=== PATIENT | male | born 1985 | race Caucasian/White ===

== ENCOUNTER 2018-12-22 09:53 | Emergency (ER) | payer SELFPAY ==
[~2018-12-22] VITALS: Ht 172.7 cm; Wt 70.3 kg
[2018-12-22] MEDS ORDERED: ONDANSETRON HCL INJ 2MG/ML 2ML 2 MG/ML VIAL IV NR (10:05)
[2018-12-22] MEDS ORDERED: MORPHINE SULFATE INJ 4 MG/ML INJ 1ML IV PRN (10:15)
[2018-12-22 10:22] LABS: BASOPHILS # (AUTO) 0.1 (0.0-0.1); BASOPHILS % 1.2 % (0.0-1.0); EOSINOPHILS # (AUTO) 0.5 (0.0-0.4); EOSINOPHILS % 5.8 % (0.0-6.0); HEMATOCRIT 45.4 % (38.2-49.6); HEMOGLOBIN 15.6 g/dL (14.0-18.0); LYMPHOCYTES # (AUTO) 1.8 (1.0-3.2); LYMPHOCYTES % 23.3 % (18.0-39.1); MEAN CORPUSCULAR HEMOGLOBIN 30.4 pg (28-32); MEAN CORPUSCULAR HGB CONC 34.4 g/dL (31-35); MEAN CORPUSCULAR VOLUME 88.3 fL (81-99); MONOCYTES # (AUTO) 0.6 (0.2-0.8); MONOCYTES % 7.6 % (4.4-11.3); NEUTROPHILS # (AUTO) 4.7 (2.1-6.9); NEUTROPHILS % 61.2 % (38.7-80.0); PLATELET COUNT 159 x10e3/uL (140-360); RED BLOOD COUNT 5.14 x10e6/uL (4.3-5.7); RED CELL DISTRIBUTION WIDTH 12.4 % (11.7-14.4)
[2018-12-22 10:27] LABS: CLARITY,URINE SL CLOUDY (CLEAR); COLOR,URINE YELLOW (YELLOW)
[2018-12-22 10:32] LABS: BILIRUBIN,URINE NEGATIVE (NEGATIVE); KETONES,URINE NEGATIVE (NEGATIVE); LEUKOCYTE ESTERASE ,URINE NEGATIVE (NEGATIVE); NITRITE,URINE NEGATIVE (NEGATIVE); PROTEIN,URINE DIPSTICK NEGATIVE (NEGATIVE); URINE UROBILINOGEN 0.2 mg/dL (0.2 - 1)
[2018-12-22 10:36] LABS: ALANINE AMINOTRANSFERASE 46 IU/L (0-55); ALBUMIN 4.1 g/dL (3.5-5.0); ALBUMIN/GLOBULIN RATIO 1.3 (0.8-2.0); ALKALINE PHOSPHATASE 66 IU/L (40-150); ANION GAP 12.6 mmol/L (8-16); BLOOD UREA NITROGEN 14 mg/dL (7-26); BUN/CREATININE RATIO 17 (6-25); CALCIUM 9.6 mg/dL (8.4-10.2); CARBON DIOXIDE 23 mmol/L (22-29); CHLORIDE 107 mmol/L (98-107); CREATININE, SERUM 0.84 mg/dL (0.72-1.25); EST GLOMERULAR FILTRATION RATE > 60 ML/MIN (60-); GLUCOSE 100 mg/dL (74-118); POTASSIUM 3.6 mmol/L (3.5-5.1); SODIUM 139 mmol/L (136-145)
[2018-12-22 10:46] LABS: RBC,URINE 0-5 /HPF (0-5)
[2018-12-22 10:47] LABS: EPITHELIAL CELLS,URINE RARE /LPF
--- NOTE | 2018-12-22 11:28 | Diagnostic Imaging Report ---
EXAMINATION: CHEST SINGLE (PORTABLE) INDICATION: ^logroll precautions ^[id number] ^[id number] COMPARISON: None FINDINGS: AP view TUBES and LINES: None. LUNGS: Lungs are well inflated. Lungs are clear. There is no evidence of pneumonia or pulmonary edema. PLEURA: No pleural effusion or pneumothorax. HEART AND MEDIASTINUM: The cardiomediastinal silhouette is unremarkable.. BONES AND SOFT TISSUES: No acute osseous lesion. Soft tissues are unremarkable. UPPER ABDOMEN: No free air under the diaphragm. IMPRESSION: No acute thoracic abnormality. Signed by: Dr. Clarita Sands M.D. on 12/22/2018 11:24 AM
--- NOTE | 2018-12-22 11:33 | Diagnostic Imaging Report ---
PELVIS X-RAY - 2 VIEWS HISTORY: ^logroll precautions ^[id number] ^104 COMPARISON: None available. FINDINGS: Bones: No acute displaced fracture. Osseous alignment is within normal limits. Joints: The joint spaces are well-maintained. Soft tissues: The soft tissues appear unremarkable. IMPRESSION: No acute radiographic abnormality. Signed by: Dr. Clarita Sands M.D. on 12/22/2018 11:30 AM
--- NOTE | 2018-12-22 11:35 | Diagnostic Imaging Report ---
CT BRAIN WO HISTORY: Trauma COMPARISON: None. TECHNIQUE: Noncontrast axial scans were obtained from skull base to the vertex. Coronal and sagittal reconstructions obtained from the axial data. One or more of the following dose reduction techniques were used: Automated exposure control, adjustment of the mA and/or kV according to patient size, and/or utilization of iterative reconstruction technique. DISCUSSION: Scalp/Skull: Unremarkable. Brain sulci: Appropriate for patient's age. Ventricles: Normal in size and configuration. No hydrocephalus. Extra-axial spaces: No masses or fluid collections. Parenchyma: Small focal hypodensity along the right putamen, at the level of the anterior commissure, is likely a prominent perivascular space. Otherwise, no mass, hemorrhage, or large vascular territory acute infarct. Dural sinuses: No abnormal densities. Sellar/Suprasellar region: Intact. Skull base: Intact. Incidental findings: Mild scattered paranasal sinus mucosal thickening. IMPRESSION: No intracranial abnormalities. Signed by: Dr. Edmond James M.D. on 12/22/2018 11:32 AM
--- NOTE | 2018-12-22 11:38 | Diagnostic Imaging Report ---
CT CERVICAL SPINE WO HISTORY: Trauma COMPARISON: Concurrent head CT TECHNIQUE: CT of the cervical spine without contrast. Sagittal and coronal reformations were created. One or more of the following dose reduction techniques were used: Automated exposure control, adjustment of the mA and/or kV according to patient size, and/or utilization of iterative reconstruction technique. FINDINGS: Cervical lordosis is slightly straightened. There is no scoliosis or subluxation. No fractures, compression deformity, or destructive osseous lesions are seen. The craniocervical junction is intact. No gross spinal canal masses are seen. The paravertebral and paraspinal soft tissues are unremarkable. The disc spaces are preserved. IMPRESSION: No acute osseous abnormalities. Signed by: Dr. Edmnod James M.D. on 12/22/2018 11:35 AM
--- NOTE | 2018-12-22 11:46 | Diagnostic Imaging Report ---
CT LUMBAR SPINE WO HISTORY: Trauma COMPARISON: Pelvis radiographs from earlier today TECHNIQUE: Axial CT images of the lumbar spine were obtained without contrast. Coronal and sagittal reconstructions obtained from the axial data. One or more of the following dose reduction techniques were used: Automated exposure control, adjustment of the mA and/or kV according to patient size, and/or utilization of iterative reconstruction technique. DISCUSSION: There are 5 nonrib-bearing lumbar vertebral bodies. Lumbar lordosis is preserved. There is no significant scoliosis or subluxation. A minimally fracture of the lower sacrum at S5 is associated with mild presacral edema. The fracture may involve the sacrococcygeal joint. No other fracture, compression deformity, or destructive osseous lesion is seen. No gross spinal canal mass is seen. The paravertebral and paraspinal soft tissues are unremarkable. Minimal multilevel spondylosis is most prominent at L1-L2. Small broad-based Schmorl's nodes are seen at L1-L2. There are mild degenerative changes in the bilateral sacroiliac joints. IMPRESSION: 1. Minimally displaced fracture of the lower sacrum at S5. 2. No other acute osseous abnormalities. Signed by: Dr. Edmond James M.D. on 12/22/2018 11:43 AM
--- NOTE | 2018-12-22 12:08 | NUR ---
TRANSFER INITIATED TO [facility] AT THIS TIME.
[2018-12-22 12:17] VITALS: BP 125/88
--- NOTE | 2018-12-22 12:26 | Diagnostic Imaging Report ---
Lumbar Spine Radiographs: 3 views HISTORY: Fall. COMPARISON: CT lumbar spine 12/22/2018 DISCUSSION: Some of the osseous structures are partially obscured by stool and bowel gas. There are five non-rib bearing lumbar vertebral bodies. The alignment of the spine is within normal limits. No displaced fracture or compression deformity is identified. Disc Spaces: The disc spaces are well maintained. Facets: The facet joints are unremarkable. IMPRESSION: No acute radiographic abnormality. S5 fracture seen on CT is not included on this exam. Signed by: Dr. Clarita Sands M.D. on 12/22/2018 12:23 PM
--- NOTE | 2018-12-22 12:48 | NUR ---
JUANA FROM [facility] PATIENT IS LEAVING MOBILE.
--- NOTE | 2018-12-22 13:05 | NUR ---
Patient decided to leave AMA. Benfits and risks explained to patient and he signed AMA form and decided not to transfer to [facility].
== END 2018-12-22 13:05 | disposition left against medical advice (07) ==
LOC: ER 09:53
DX: S32.19XA Other fracture of sacrum, initial encounter for closed fracture (principal); M54.5 Low back pain; W14.XXXA Fall from tree, initial encounter; Y93.H2 Activity, gardening and landscaping; Y92.007 Garden or yard of unspecified non-institutional (private) residence as the place of occurrence of the external cause; J45.909 Unspecified asthma, uncomplicated
CPT/HCPCS: 36415; 70450; 71045; 72100; 72125; 72131; 72170; 80053; 81001; 85025; 93005; 99284; J2270; J2405